=== PATIENT | male | born 2000 ===

== ENCOUNTER 2024-12-24 16:31 | Emergency (ER) | payer OTHER ==
[~2024-12-24] VITALS: Ht 170.2 cm; Wt 61.4 kg
[2024-12-24 16:35] VITALS: BP 139/84; PULSE 71; RESP 18; TEMP 98.2; O2SAT 99
[2024-12-24] MEDS ORDERED: ALBU18HF12 IH (16:40)
[2024-12-24] MEDS ORDERED: NAPR-1196 PO (16:42)
[2024-12-24] MEDS ORDERED: CLOT15CR23 TP (16:42)
[2024-12-24] MEDS ORDERED: TERB250T90 PO (16:42)
== END 2024-12-24 17:18 | disposition home or self-care (01) ==
LOC: EMS 16:31
DX: S60.221A Contusion of right hand, initial encounter (principal); J45.909 Unspecified asthma, uncomplicated; F12.90 Cannabis use, unspecified, uncomplicated; Z98.890 Other specified postprocedural states; Z79.899 Other long term (current) drug therapy; V49.9XXA Car occupant (driver) (passenger) injured in unspecified traffic accident, initial encounter; Y93.89 Activity, other specified; Y92.89 Other specified places as the place of occurrence of the external cause; Y99.8 Other external cause status
CPT/HCPCS: 99283